=== PATIENT | female | born 1990 | race Caucasian/White ===

== ENCOUNTER 2020-01-30 13:23 | Inpatient (IN) | payer OTHER ==
[~2020-01-30] VITALS: Ht 172.7 cm; Wt 111.1 kg
--- NOTE | ~2020-01-30 | OP ---
[address] [address] OPERATIVE REPORT Name: MELISSA OLIVAS Room: [address] IN [facility]#: [id number] Admission: 01/30/20 Attend Phys: Nando Hernandez MD Discharge: Date of : 88 Report #: [id number] THIS REPORT FOR: //name// cc: Mino Davis MD, Bryan W. MD ~ THIS REPORT FOR: //name// CC: Nando Davis DATE OF SERVICE: 01/31/2020 PREOPERATIVE DIAGNOSIS: Left closed displaced intraarticular distal tibia fibula fracture. POSTOPERATIVE DIAGNOSIS: Left closed displaced intraarticular distal tibia fibula fracture. OPERATIONS PERFORMED: Closed reduction of the left tibia and fibula fracture with application of multiplanar external fixator, joint crossing. ANESTHESIA TYPE: General. ESTIMATED BLOOD LOSS: 10 mL. SPECIMENS REMOVED: None. COMPLICATIONS: None. REASON FOR PROCEDURE: The patient is a pleasant 29-year-old female who had sustained a fall yesterday afternoon after she missed 4 steps, landing on her inverted left ankle. She immediately noticed a deformity and was not able to be weightbearing. She presented to the ER where she was notice to have a left intra-articular distal tibia fibula fracture. Upon close review of the CT, this fracture does extend into the articular portions on the anterior and posterior aspects of the tibia to the comminution and to the shortening of the fibula. This fracture has unstable characteristics. Her skin is not currently amenable to definitive fixation due to the swelling and bruising that has already been present. We discussed doing an external fixator for a temporary fixation and to stabilize the fracture. We discussed risks, benefits and alternatives to this procedure. The patient understood these risks, which include infection, neurovascular injury, continued pain, pin site infections, DVT, PE and other imponderables associated with general anesthesia. The patient will return at a later date with Dr. Zavala for definitive fixation of the left distal [place]ia [place] [address] OPERATIVE REPORT Name: MELISSA OLIVAS Room: [address] IN .R.#: [id number] Admission: 01/30/20 Attend Phys: Nando Hernandez MD Discharge: Date of : 88 Report #: [id number] OPERATION PERFORMED: Risks, benefits and alternatives to the procedure were once again discussed with the patient. The patient understood these risks. The consent was signed and verbalized. The correct site was marked in the presence of the patient and confirmed by the patient. The patient was then taken back to the operative suite. She was given general anesthetics. The splint was removed. No wrinkle sign was present over the fibula. The patient's swelling was extensive and bruising about the fibula and the ankle directly over the incision site for the fibula. It was decided that only an ex-fix would be performed at this time. A correct a timeout was performed and everybody agreed on the correct patient, date of and operative site that were present in the room. C-arm was then brought in and used to confirm the fracture site, which was marked. The tibial spine was then felt. An area just lateral to the tibial spine was chosen that was proximal to the future operative site. The pin site was drilled and confirmed via C-arm. The first pin was then placed in the proximal pin site in the standard fashion. The ex-fix guide was then utilized to do the distal tibial pin. The incision was made. The hole was drilled and then the pin was placed in a standard bicortical fashion. Next, attention was drawn to the calcaneal pin. Pin site was made going medial to lateral in the standard fashion. Then, the ex-fix was placed on the leg. C-arm images were then utilized to confirm. Mild traction was placed on calc pin to bring the fibula out to length. A good reduction with the correct length was confirmed via C-arm and the ex-fix pins were tightened. The patient was then placed in sterile bandages around her pin sites. She was brought back to PACU in stable condition. She is going to follow up for definitive fixation in the next week. She was instructed on pin site care. She was giving aspirin for DVT prophylaxis and instructed how to use this as well as pain medication. She was told to be nonweightbearing to the left lower extremity and will be given crutch training. Dr. Mast was present for the entirety of the procedure. By: [id number] Mast, DO /nt
[~2020-01-30 13:23] MED LIST: CALCIUM500 M1 PO; PRENATAL TABLE1 EAC2 PO
[2020-01-30 13:25] VITALS: BP 137/79
[2020-01-30] MEDS ORDERED: XANAX 0.5 MG0.5 M1 PO (13:31)
[2020-01-30] MEDS ORDERED: PROZAC20 MG PO ×2 (13:31→17:47)
[2020-01-30] MEDS ORDERED: ADDERALL 12.512.5 MG PO (13:32)
[2020-01-30 15:04] LABS: HEMOGLOBIN 14.6 gm/dL (12.0-15.0); MCH 31.2 pg (26.0-34.0); MCHC 33.9 g/dL (28.0-37.0); MPV 7.6 fl. (7.2-11.1); NUCLEATED RBCS 0 /100WBC; PLATELET COUNT* 396 thou/uL (150-400); RBC 4.67 mil/uL (4.20-5.00); RDW-CV 13.7 % (10.5-14.5); WBC 11.8 thou/uL (4.0-11.0)
[2020-01-30 15:15] LABS: POTASSIUM 4.2 mmol/L (3.5-5.1)
[2020-01-30 15:17] LABS: APTT 27.1 Seconds (25.0-31.3); PROTIME 10.2 Seconds (9.20-11.50)
[2020-01-30 15:20] LABS: ALBUMIN 3.4 g/dL (3.4-5.0); TOTAL BILIRUBIN 0.3 mg/dL (<0.1-1.0); TOTAL PROTEIN 6.9 g/dL (6.4-8.2)
[2020-01-30 15:45] LABS: ABSOLUTE LYMPHOCYTES 0.9 thou/uL (0.8-5.3); ABSOLUTE MONOCYTES 0.5 thou/uL (0.0-1.2); ABSOLUTE NEUTROPHILS 10.4 thou/uL (1.6-8.1); PLATELET ESTIMATE ADEQUATE
[2020-01-30 17:14] VITALS: BP 135/72
[2020-01-30] MEDS ORDERED: VYVANSE50 MG PO (17:45)
[2020-01-30 18:00] VITALS: BP 130/71
[2020-01-30 20:30] VITALS: BP 123/86
[2020-01-31 04:17] LABS: ABSOLUTE EOSINOPHILS 0.1 thou/uL (0.0-0.7); ABSOLUTE LYMPHOCYTES 1.3 thou/uL (0.8-5.3); ABSOLUTE MONOCYTES 0.7 thou/uL (0.0-1.2); ABSOLUTE NEUTROPHILS 7.5 thou/uL (1.6-8.1); BASOPHILS 0.5 %; EOSINOPHILS 0.6 %; HEMATOCRIT 41.7 % (37.0-47.0); HEMOGLOBIN 14.1 gm/dL (12.0-15.0); MCH 31.4 pg (26.0-34.0); MCHC 33.9 g/dL (28.0-37.0); MCV 92.7 fL (80.0-100.0); MONOCYTES 7.3 %; MPV 7.6 fl. (7.2-11.1); NUCLEATED RBCS 0 /100WBC; PLATELET COUNT* 395 thou/uL (150-400); POLYS 77.6 %; RBC 4.49 mil/uL (4.20-5.00); RDW-CV 13.9 % (10.5-14.5); WBC 9.6 thou/uL (4.0-11.0)
[2020-01-31 04:27] LABS: CALCIUM 8.1 mg/dL (8.5-10.1); POTASSIUM 3.7 mmol/L (3.5-5.1)
--- NOTE | 2020-01-31 05:58 | NUR ---
PATIENT SLEPT PART OF THE NIGHT. IV FLUIDS CONTINUE TO INFUSE AT 100 ML/HR. PATIENT WAS GIVEN PAIN MEDS ABOUT EVERY 4 HOURS. PATIENT WAS UNABLE TO VOID ON THE BED STEWART. BLADDER SCAN SHOWED 500. COPELAND WAS PLACED THIS MORNING TO DEPENDENT DRAIN. PATIENT HAS BEEN NPO SINCE MIDNIGHT FOR SURGERY TODAY. WILL CONTINUE TO MONITOR.
[2020-01-31 06:10] VITALS: BP 130/71
[2020-01-31 10:18] VITALS: BP 119/85
--- NOTE | 2020-01-31 11:07 | EKG ---
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
--- NOTE | 2020-01-31 11:11 | NUR ---
AT APRX 1015HRS, PT ARRIVED BACK TO 310 FROM SURGERY. PROCEDURE REPORTED COMPLETE WAS EXT FIX OF LT TIB/FIB WITH PIN PLACEMENT. PT RESTING SUPINE IN BED, A&OX4. INITIAL SAO2 WAS 86% ON RA UPON ARRIVAL TO . O2 IMPROVED AFTER 2L VIA NC TO 96%. PINS PLACED APPROPRIATELY TO LT LOWER EXTREMITY, BANDAGES IN PLACE, NO DRAINAGE NOTED AT TIME OF ASSESSMENT. PT DENIES PAIN AT TIME OF ASSESSMENT. SENSATIONS INTACT, 2+ PULSES IN BILATERAL DORALIAS PEDIS. VS: T:98.7 ORAL; R:16; P:77; SAO2: 96% 2L VIA NC; BP: 119/85. WILL CONTINUE TO MONITOR
--- NOTE | 2020-01-31 12:00 | NUR ---
PT ADAMANT ABOUT GOING HOME TODAY. PT STILL HAS COPELAND IN AND IS ON O2. PT WILL NEED WC AND CRUTCHES OR WALKER BASED ON THERAPY RECOMMENDATIONS. CALLED [facility]-NO WHEELCHAIRS AVAILABLE. NOT ABLE TO GET IN TOUCH WITH [facility] OR [facility]. WILL AWAIT THERAPY REC
--- NOTE | 2020-01-31 13:17 | NUR ---
PT UP WITH THERAPY AND 2 ASSIST. PT UNSTEADY AND IS UNABLE TO AMBULATE WITH CRUTCHES. PT DOES NOT AMBULATE SAFELY WITH WALKER. PT IS UNABLE TO BEAR FULL WEIGHT ON HER RIGHT FOOT. PT ENCOURAGED TO STAY FOR ADDITIONAL THERAPY AND UNTIL DME CAN BE ORDERED IN AM
[2020-01-31 16:00] VITALS: BP 126/64
--- NOTE | 2020-01-31 17:04 | NUR ---
PT UP THIS AM FROM OR. PAIN WELL CONTROLLED.PT NOT ABLE TO USE CRUTCHES. UNSTEADY WITH WALKER SHE STATES SHE CANNOT STAND ON HER RIGHT FOOT. TOLERATING PO WELL. MIN DC THIS AFTERNOON. HAS NOT VOIDED AT THIS TIME. PT ANXIOUS TO STAY IN HOSPITAL BUT AGREES IT IS NOT A SAFE PLAN TO DC HOME ZAKIYA
[2020-01-31 20:00] VITALS: BP 123/71
[2020-01-31 23:54] VITALS: BP 131/68
[2020-02-01] VITALS (8 sets, daily range): BP systolic 114–132; BP diastolic 73–86
--- NOTE | 2020-02-01 05:12 | NUR ---
PATIENT SLEPT MOST OF THE NIGHT. PATIENT WAS ABLE TO SLIDE OVER ON THE COMMODE TO VOID. IV REMAINS SALINE LOCKED. PATIENT WAS GIVEN PAIN MEDICINE TWICE WITH GOOD RELIEF. WILL CONTINUE TO MONITOR.
--- NOTE | 2020-02-01 16:28 | NUR ---
PHILLIP met with pt to complete assessment and discuss safe dc planning. Pt lives at home with . Pt has dc needs for wc and HH. PHILLIP discussed options and arranged with pt choices for wc through [facility] and HH with [facility]. [facility] called and PHILLIP spoke with Rubens who stated pt hasn't met deductible and wc will cost $39.50 a month; pt to call to provide [employer] card on file to cover cost if pt does agree to the cost. [facility] accepted referral and will provide follow up HH services. SW has ride home and can bump up with wc for pt to be able to safely enter pt home. PHILLIP discussed needed wc justification in progress note with Dr Hernandez; [facility] needs this note before able to provide wc to pt. PHILLIP discussed this with pt nurse as well.
[2020-02-01] MEDS ORDERED: NORCO 5-325 TA1 EAC1 PO (17:11)
[2020-02-01] MEDS ORDERED: ASPIRIN325 PO (17:11)
[2020-02-01] MEDS ORDERED: OXYCODONE HCL 55 MG PO (17:12)
--- NOTE | 2020-02-01 17:34 | NUR ---
PT REMAINED ALERT TO SELF AND AT TIMES CONFUSED. PT RESTING IN BED. ORIENTATION DECREASED DAY GOES ON. INSULIN GIVEN ORDERED. HEPARIN DRIP RUNNING PER PROTOCOL. FALL RISK PRECAUTIONS IN PLACE. HOURLY ROUNDING COMPLETED. WILL CONTINUE TO MONITOR.
--- NOTE | 2020-02-01 18:39 | NUR ---
PT REMAINED ALERT AND ORIENTED. PT IV REMOVED. PT GIVEN PAIN MEDS PER ORDERS. WHEELCHAIR DELIVERED. HOME HEALTH SET UP. FALL RISK PRECAUTIONS IN PLACE. HOURLY ROUNDING COMPLETED. PT LEFT VIA WHEELCHAIR WITH NURSING STAFF TO HOME WITH HOME HEALTH.
== END 2020-02-01 18:41 | disposition home health service (06) | DRG 493 ==
LOC: M.ERS 13:23 → M.TBA-ER 15:31 → M.3W 15:31
PROVIDERS: Nurse Practitioner Family; ADMIT Internal Medicine
PROC: 2W3RX1Z Immobilization of Left Lower Leg using Splint (ICD-10-PCS; 2020-01-30)
PROC: 0QSK35Z Reposition Left Fibula with External Fixation Device, Percutaneous Approach (ICD-10-PCS; principal; 2020-01-31)
PROC: 0QSH35Z Reposition Left Tibia with External Fixation Device, Percutaneous Approach (ICD-10-PCS; principal; 2020-01-31)
DX: S82.252A Displaced comminuted fracture of shaft of left tibia, initial encounter for closed fracture (principal); R65.10 Systemic inflammatory response syndrome (SIRS) of non-infectious origin without acute organ dysfunction; S82.452A Displaced comminuted fracture of shaft of left fibula, initial encounter for closed fracture; F90.9 Attention-deficit hyperactivity disorder, unspecified type; F41.9 Anxiety disorder, unspecified; F32.9 Major depressive disorder, single episode, unspecified; S93.401A Sprain of unspecified ligament of right ankle, initial encounter; W10.9XXA Fall (on) (from) unspecified stairs and steps, initial encounter; Z79.899 Other long term (current) drug therapy; Z72.89 Other problems related to lifestyle; Y93.89 Activity, other specified; Y92.89 Other specified places as the place of occurrence of the external cause; Y99.8 Other external cause status

== ENCOUNTER → 2020-02-05 | Outpatient (CLI) | payer OTHER ==
[~2020-02-05] MED LIST changes: +ADDERALL 12.512.5 MG PO; +ASPIRIN325 PO; +NORCO 5-325 TA1 EAC1 PO; +OXYCODONE HCL 55 MG PO; +PROZAC20 MG PO; +VYVANSE50 MG PO; +XANAX 0.5 MG0.5 M1 PO
== END ==
LOC: M.ULTRA 11:37
DX: M79.89 Other specified soft tissue disorders (principal)

== ENCOUNTER 2020-02-15 07:46 | Observation (INO) | payer OTHER ==
--- NOTE | ~2020-02-15 | OP ---
[address] [address] OPERATIVE REPORT Name: MELISSA TONG Room: [address] Nathan#: [id number] Admission: 02/15/20 Attend Phys: Melisa Maddox Discharge: 02/16/20 Date of : 88 Report #: [id number] THIS REPORT FOR: //name// cc: Mino Davis MD, Bryan W. MD ~ THIS REPORT FOR: //name// CC: Mino Fatima DATE OF SERVICE: 02/15/2020 PREOPERATIVE DIAGNOSES: 1. Intra-articular comminuted left distal tibia fracture. 2. Left distal fibular fracture. 3. Status post external fixation spanning ankle. POSTOPERATIVE DIAGNOSES: 1. Intra-articular comminuted left distal tibia fracture. 2. Left distal fibular fracture. 3. Status post external fixation spanning ankle. PROCEDURES: 1. Open reduction and internal fixation of left intraarticular distal tibia fracture. 2. Open reduction and internal fixation of left distal fibula fracture. 3. Removal of external fixation under anesthesia. SURGEON: Quincy Zavala DO ASSISTANTS: 1. Ryan Sesay DO 2. Enrique Hunter DO ANESTHESIA: General. ANTIBIOTICS: Ancef IV. FLUIDS: 1500 mL lactated Ringer's. URINE OUTPUT: 200 mL. TOURNIQUET TIME: For tibia 111 minutes at 280 mmHg, was down for 30 minutes and then went back up for 21 minutes for the fibula. COMPLICATIONS: None. [address] [address] OPERATIVE REPORT Name: MELISSA TONG Room: [address] MDamirRDamir#: [id number] Admission: 02/15/20 Attend Phys: Melisa Maddox Discharge: 02/16/20 Date of : 88 Report #: [id number] SPECIMENS: None. DRAINS: None. CONDITION OF PATIENT: Stable to PACU. IMPLANTS: Synthes 3.5 distal tibial plate, anterolateral with 3.5 cortical screws x 3 distally and 2 locking screws, screws proximally were cortical. There are two 2.7 mm positional lag screws and one 3.5 lag screw. INDICATIONS FOR PROCEDURE: The patient presented to [facility] for operative fixation of her left distal tibia and fibula fracture. She had originally been externally placed in external fixation by my partner, Dr. Mast. He asked that I take over care due to my fracture training. I saw her in clinic and went over both at clinic the risks and complications of surgery as well as the plan. She acknowledged and accepted them and gave consent. DESCRIPTION OF PROCEDURE: I marked the left lower extremity in the presence of operative team members. Everyone agreed this was correct. She was taken back to the operative suite, briefing performed indicating correct patient, procedure, site, antibiotics and that implants were present and sterile. All team members agreed. She was transferred over to the operative table in supine position, well-padded and secured. General anesthetic administered. A well-padded tourniquet was placed proximally on the left lower extremity. We then performed our first timeout, confirming that we were planning on removing the external fixation. The external fixation was removed uneventfully with a curette with the pin sites were curetted out well and irrigated. We then sterilely prepped and draped the left lower extremity in standard fashion. We again performed a secondary timeout confirming the procedure. The patient, site, antibiotics and implants were present and sterile. All team members agreed. We began by marking out our incision for the tibia, this was where we would begin anterolateral approach based on the CT scan and her skin conditioning. We went up a tourniquet at 280 mmHg. Scalpel through skin, no touch technique, minimal retraction, to help the skin conditions. Full thickness flaps down to fascia. I identified the superficial peroneal nerve and protected throughout. The fascia was incised proximally and distally. Neurovascular bundle was identified and protected. We visualized the distal tibia. Our first aspect was getting that fracture site correct. We were able to do this in an anatomic fashion in the intraarticular portion and placed a lag screw 3.5 mm. This had excellent purchase. We then began by working proximally, positional screws of 2.7 mm were used. We were able to get some good compression, but did not want to take down what healing was there. Our plan all along was for a hybrid type fixation with bridging as well as getting reduction, but did not want to cause any undue stripping of biology at fracture site as this was already 2 weeks out. We were able [place] [address] OPERATIVE REPORT Name: MELISSA TONG Room: [address] Kena Evans#: [id number] Admission: 02/15/20 Attend Phys: Sumanth Fatima, D Discharge: 02/16/20 Date of : 88 Report #: [id number] We placed our plate, confirmed on multiplanar C-arm imaging that our reduction was appropriate as well as our plate positioning. We began by placing cortical screws proximally. It should be noted that our most proximal cortical screw was placed in a percutaneous fashion as we did not want to extend the incision closer to our ex-fix pin site. Our plate was stopping at the aspect of the most distal pin from the ex-fix with screw placement would be distal to that, so there would not have overlap. Distally, we were able to place cortical screws to help suck the plate to bone. The remaining screws were locking. At this point in time, all hardware was in place, we took C-arm imaging confirming excellent placement of the hardware and fracture reduction. We let down tourniquet time. Total time was 11 minutes. Maintained hemostasis, neurovascular bundle. The artery was palpable with no injury. We irrigated with normal saline thoroughly, closed with 0 Vicryl [id number] interrupted, placed extensor retinaculum and ____ of the fascia approximated, there was quite a bit of swelling and ____ of the fascia open acting as the fasciotomy, which would be helpful. Subcutaneous was closed with 2-0 Monocryl buried deep. Skin was closed with 3-0 nylon modified Allgower-Donati interrupted sutures. We confirmed for that aspect of the case, we were complete and that the counts were correct. We then turned our attention to the fibula. We made an incision making sure that this incision was at least a 6.5 cm away from the other incision. This would also placed us in a nice posterolateral type fashion for being up anteriorly but having the incision over the musculature and peroneal tendon. We went back up with tourniquet. Total time for in between going on for tourniquet was 30 minutes. Full thickness flaps were created. We were posterior enough that the superficial peroneal nerve was not utilized, but we did look forward and protect throughout. We visualized our fracture site. We were able to get a direct reduction as keyed in nicely confirming that we had restored length of our tibia appropriately. The reduction held until that keyed in, we placed our one-third tibial plate and drilled and placed all 3.5 low profile cortical screws. Final C-arm images showed excellent placement of hardware and fracture reduction. Saved final images and dismissed C-arm, let down tourniquet, our total time for the fibula was 20 minutes. Hemostasis was maintained, irrigated with normal saline. Closure was with 0 Vicryl deep for fascia, 2-0 Monocryl for subcutaneous and 3-0 nylon modified Allgower-Donati interrupted for skin. Debriefing was performed confirming the procedure, blood loss and that all counts were correct and final. All team members agreed. Sterile splint was placed consisting of Xeroform gauze, 4 x 4s, well padded soft roll, posterior splint and Aníbal wrap. Mupirocin ointment was placed into the external fixation pin sites. She was extubated and taken to PACU stable. POSTOPERATIVE COURSE AND EVALUATION: I spoke with her per her wishes. Addressed questions he had to his stated satisfaction. He was very thankful for my time and efforts. She was resting in PACU with stable vital signs, pain controlled, neurovascularly intact. No pain out of proportion with passive stretching. It should be noted that she had a negative Homans sign prior to the procedure and working through the splint and it did appear that she continued to [address] [address] OPERATIVE REPORT Name: MELISSA TONG Room: [address] Kena Evans#: [id number] Admission: 02/15/20 Attend Phys: Melisa Maddox Discharge: 02/16/20 Date of : 88 Report #: [id number] have a negative Homans sign. PACU films showed stable internal fixation and fracture reduction. She will be nonweightbearing. Encourage mechanical DVT prophylaxis as well as pharmacologic that was discussed with them, not only in the preoperative period while in clinic, but also again was discussed with her and patient upon discharge. Educated them on concerning signs or symptoms of DVT or PE that would warrant immediate contact for followup or even presentation to the ED. Maintain splint clean, dry and intact. Call anytime with questions or follow up in 2 weeks or sooner if need be. By: [id number] Zavala DO /nt
[2020-02-15 08:22] LABS: HEMATOCRIT 37.5 % (37.0-47.0); HEMOGLOBIN 12.7 gm/dL (12.0-15.0)
[2020-02-15 18:31] VITALS: BP 141/72
[2020-02-15 20:00] VITALS: BP 137/77
[2020-02-16] VITALS: BP 124/71
[2020-02-16 04:00] VITALS: BP 136/77
--- NOTE | 2020-02-16 05:15 | NUR ---
PATIENT HAS REMAINED ALERT AND ORIENTED X 4 THROUGHOUT THE SHIFT AND RESTING QUIETLY AT HOURLY ROUNDS. UP SBA FROM BED TO WHEELCHAIR AND WC TO TOILET MAINTAINING NWB STATUS LLE. WHILE IN BED LLE ELEVATED ON PILLOWS AND ICE PACKS. LLE SPLINTED/WRAPPED HAS REMAINED CLEAN AND DRY. TOES WITH BRISK CAP REFILL AND SENSATION INTACT. FAIR PAIN CONTROL WITH BOTH ORAL AND IV MEDICATIONS. VITAL SIGNS STABLE ON 3 L/MIN O2 AND CONTINUOUS OXIMETRY. MEDS, ANTIBIOTIC AND IVF'S PER ORDER. CONTINUE TO MONITOR.
[2020-02-16 05:53] LABS: HEMATOCRIT 34.5 % (37.0-47.0); HEMOGLOBIN 11.5 gm/dL (12.0-15.0)
[2020-02-16] MEDS ORDERED: METAMUCIL1 EAC1 PO (09:55)
[2020-02-16] MEDS ORDERED: DULCOLAX STOOL100 M1 PO (10:01)
[2020-02-16 10:15] VITALS: BP 119/70
[2020-02-16 10:44] VITALS: BP 119/70
--- NOTE | 2020-02-16 11:53 | NUR ---
ASSUMED CARE OF PT AROUND 0730 THIS AM. REFER TO ASSESSMENT. VSS. PAIN MANAGED WITH PRN MEDICATION. PT TOLERATED PT/OT. ORDERS TO DC HOME. PT GIVEN DC INSTRUCTIONS AND VERBALIZES UNDERSTANDING. NO OTHER CONCERNS AT THIS TIME. CLWR. WCTM.
--- NOTE | 2020-02-16 12:01 | NUR ---
DISCHARGING TODAY AFTER THERAPY. LIVES WITH . HE WILL BE ABLE TO HELP HER AT HOME NEEDED. SHE IS CURRENT WITH [facility]. SPOKE WITH NOEMY/NICOLE AND FAXED H&P,OP REPORT,ORTHO PROGRESS NOTE AND MED LIST TO HER. PT.WILL NEED A FRONT WHEEL WALKER. [facility] OK[facility]isa PT.TO HAVE A WALKER THROUGH [facility]. ORDER OBTAINED. THERAPY WILL DISPENSE ONE PRIOR TO DISCHARGE. PT.DENIES ANY OTHER NEEDS.
== END 2020-02-16 12:10 | disposition home health service (06) ==
LOC: M.SUR 07:46 → M.ORTHSURG 14:39
PROVIDERS: Orthopaedic Surgery; ADMIT Internal Medicine; ATTEND Internal Medicine
DX: Z03.818 Encounter for observation for suspected exposure to other biological agents ruled out (principal); S82.392A Other fracture of lower end of left tibia, initial encounter for closed fracture; X58.XXXA Exposure to other specified factors, initial encounter; Y92.89 Other specified places as the place of occurrence of the external cause; Y99.8 Other external cause status; Y93.89 Activity, other specified; F41.8 Other specified anxiety disorders; F90.9 Attention-deficit hyperactivity disorder, unspecified type